=== PATIENT | female | born 1970 | race Two or more races ===

== ENCOUNTER 2021-05-06 12:11 | Emergency (ER) | payer MEDICAID ==
[~2021-05-06] VITALS: Ht 154.9 cm; Wt 81.6 kg
[2021-05-06 12:11] VITALS: BP 141/78
== END 2021-05-06 14:06 | disposition home or self-care (01) ==
LOC: ER 12:11
DX: U07.1 COVID-19 (principal)
CPT/HCPCS: 36415; 71045; 87426